=== PATIENT | female | born 1955 | race Two or more races ===

== ENCOUNTER 2020-11-05 16:35 | Emergency (ER) | payer OTHER, SELFPAY ==
--- NOTE | ~2020-11-05 | CT_ITS ---
EXAMINATION: CT brain wo con INDICATION: Dizziness COMPARISON: None TECHNIQUE: Standard unenhanced head CT. The dose-length product (DLP) was 605.33 mGy-cm. The mA was a djusted according to patient size. Iterative reconstruction technique was employed. FINDINGS: There is no intracranial hemorrhage, acute infarction, or abnormal mass lesion. The ventric les are normal. There is no abnormal mass effect or midline shift. The carnes-white matter differentiat ion is normal. The basal cisterns are patent. The orbits are normal. The paranasal sinuses, mastoids and calvarium are normal. IMPRESSION: 1. No acute intracranial abnormality. Reviewed, dictated and finalized at location A.
[2020-11-05 17:00] VITALS: BP 162/81; PULSE 85; RESP 17; TEMP 36.8; O2SAT 98
--- NOTE | 2020-11-05 17:03 | ECG_ITS ---
Measurements Intervals [place] Rate: 75 P: 38 GA: 193 QRS: 32 QRSD: 93 T: 35 QT: 375 QTc: 421 Interpretive Statements SINUS RHYTHM BORDERLINE R WAVE PROGRESSION, ANTERIOR LEADS CONSIDER INFERIOR INFARCT, AGE INDETERMINATE ABNORMAL ECG Electronically Signed On 11-06-2020 7:15:56 CDT by Paulo Carter D.O.
[2020-11-05 17:32] LABS: Basophils Absolute Auto 0.04 K/mm3 (0.00-0.10); Basophils Percent Auto 0.5 % (0.0-1.0); Eosinophils Absolute Auto 0.13 K/mm3 (0.02-0.50); Eosinophils Percent Auto 1.8 % (1.0-6.0); Hematocrit 39.2 % (35.0-49.0); Hemoglobin 12.8 g/dL (12.0-15.0); Immature Granulocyte Absolute 0.04 K/mm3 (0.00-0.00); Immature Granulocyte Percent A 0.5 % (0.0-0.0); Lymphocytes Absolute Auto 1.59 K/mm3 (1.10-4.50); Lymphocytes Percent Auto 21.7 % (18.0-42.0); Mean Corpuscular HGB Conc 32.7 g/dL (32.0-36.0); Mean Corpuscular Hemoglobin 31.1 pg (27.0-31.0); Mean Corpuscular Volume 95.1 fL (78.0-102.0); Monocytes Absolute Auto 0.44 K/mm3 (0.10-0.90); Neutrophils Absolute Auto 5.1 K/mm3 (1.7-7.2); Neutrophils Percent Auto 69.5 % (50.0-70.0); Platelet Count Result 203 K/mm3 (150-420); Red Blood Count 4.12 M/mm3 (4.20-5.40); Red Cell Distribution Width 13.4 % (11.6-14.4); White Blood Count 7.3 K/mm3 (4.8-10.8)
[2020-11-05 17:33] LABS: Add Urine Microscopic? YES; Appearance Urine Clear (Clear); Bilirubin Urine Negative (Negative); Blood Urine 2+ (Negative); Color Urine Yellow (Yellow); Glucose Urine UA Negative (Negative); Ketones Urine Trace (Negative); Leukocyte Esterase Ur Negative LEU/UL (Negative); Nitrate Urine Negative (Negative); Protein Urine Negative (Negative); Urobilinogen Urine 0.2 mg/dL (0.2-1.0)
[2020-11-05 17:42] LABS: Bacteria Urine Trace /hpf; Squamous Epithelial Cell Urine Rare /hpf (Few); WBC Urine None seen /hpf (0-3)
[2020-11-05 17:48] LABS: Partial Thromboplastin Time 25.9 SEC (23.90-30.70)
[2020-11-05 17:52] LABS: BNP 62.5 pg/mL (0-100)
[2020-11-05 17:57] LABS: Alanine Aminotransferase 32 U/L (14-59); Albumin Level 3.4 g/dL (3.4-5.0); Alkaline Phosphatase 45 U/L (46-116); Anion Gap 8 mmol/L (8-16); Aspartate Amino Transferase 15 U/L (15-37); Bilirubin,Total 0.7 mg/dL (0.00-1.00); Blood Urea Nitrogen 20 mg/dL (7-18); Calcium 9.3 mg/dL (8.5-10.1); Carbon Dioxide 28 mmol/L (21-32); Chloride 103 mmol/L (98-108); Estimated Glomerular Filt Rate 53; Glucose 106 mg/dL (70-99); Magnesium 1.5 mg/dL (1.8-2.4); Osmolality Calculated 290 mOsm/kg (285-295); Sodium 139 mmol/L (136-145); Total Protein 6.9 g/dL (6.4-8.2); Troponin I 13.5 ng/L (0.00-60.4)
[2020-11-05 17:59] LABS: Lactic Acid Reflex 2.2 mmol/L (0.4-2.0)
[2020-11-05] MEDS: MECLIZINE HCL 25 MG TABLET PO (18:08)
--- NOTE | 2020-11-05 18:09 | ED.DIZZY ---
HPI - Dizziness General Chief Complaint: Dizziness Stated Complaint: AMB Source: patient Mode of arrival: EMS Limitations: no limitations History of Present Illness HPI Narrative: this is a 65-year-old female with history of diabetes well controlled that presented to the emergency department via EMS after she called EMS while she was experiencing dizziness and vertigo with nausea vomiting. The patient denied having shortness of breath no chest pain no headache no blurry vision no fever or chills. The patient had previous episode of benign positional vertigo, in route EMS found that her heart rate was between 48 and 58 and gave her old dose of atropine, current heart rate is 85 she is asymptomatic, with no chest pain no shortness of breath. MD elicited complaint: dizziness Pertinent past history: BPPV Onset (ago): hour(s) Timing: gradual onset Severity: moderate Description: room spinning Exacerbating factors: movement/ambulation Associated symptoms: nausea and vomiting Related Data Home Medications Medication Instructions Recorded Confirmed levothyroxine [Synthroid] 50 mcg PO DAILY 11/05/20 11/05/20 losartan 100 mg PO DAILY 11/05/20 11/05/20 meloxicam 15 mg PO DAILY 11/05/20 11/05/20 metformin 1,000 mg PO BID 11/05/20 11/05/20 Allergies Allergy/AdvReac Type Severity Reaction Status Date / Time No Known Allergies Allergy Unverified 11/19/15 13:21 Review of Systems Review of Systems: All systems reviewed & are unremarkable except as noted in HPI and below PMFSH Past Medical History Medical History Benign positional vertigo Diabetes mellitus Exam Const: General: no acute distress and alert Orientation/consciousness: patient oriented x3 HENMT: Head: normal to inspection Eyes: Conjunctivae: conjunctivae normal Pupils: Equal, round and reactive pupils present Neck: Neck: normal visual inspection, no lymphadenopathy and no meningeal signs Resp: Effort & Inspection: normal respiratory effort Cardio: Rate: regular rate Rhythm: regular rhythm GI: Auscultation: normal bowel sounds : General: Yes no CVA tenderness Skin: General skin exam: normal color Rashes: no rashes Neuro: General: patient oriented x3, moves all extremities, no meningeal signs, no focal motor deficits and CN's II-XI intact bilaterally Cranial nerves: Yes Nystagmus not present Speech: normal speech Extrem: General: normal to inspection and no pedal edema Psych: Appearance: grossly normal Mental Status: mental status grossly normal Course Course Emergency Course: patient has improved, receive meclizine and magnesium p.o., a CT scan and labs an EKG really were reviewed with patient patient did receive atropine via EMS about her heart rate was in the 50s upon arrival with some a history of BPH and dizziness which has improved. Vital Signs Vital signs: Vital Signs Temperature 36.8 C 11/05/20 17:00 Pulse Rate 85 11/05/20 17:00 Respiratory Rate 17 11/05/20 17:00 Blood Pressure 162/81 H 11/05/20 17:00 Pulse Oximetry 98 11/05/20 17:00 Temperature 36.8 C 11/05/20 17:00 Pulse Rate 85 11/05/20 17:00 Respiratory Rate 17 11/05/20 17:00 Blood Pressure 162/81 H 11/05/20 17:00 Pulse Oximetry 98 11/05/20 17:00 MDM - Dizziness Lab Data Result diagrams: 11/05/20 17:22 11/05/20 17:21 Labs: Lab Results 11/05/20 11/05/20 11/05/20 Range/Units 17:21 17:21 17:21 WBC (4.8-10.8) K/mm3 RBC (4.20-5.40) M/mm3 Hgb (12.0-15.0) g/dL Hct (35.0-49.0) % MCV (78.0-102.0) fL MCH (27.0-31.0) pg MCHC (32.0-36.0) g/dL RDW (11.6-14.4) % Plt Count (150-420) K/mm3 MPV (9.2-11.8) fl Immature Gran % (Auto) (0.0-0.0) % Neut % (Auto) (50.0-70.0) % Lymph % (Auto) (18.0-42.0) % [place] % (Auto) (2.0-11.0) % Eos % (Auto) (1.0-6.0) % Baso % (Auto) (0.0-1.0
[2020-11-05] MEDS: MAGNESIUM OXIDE 400 MG TABLET PO (18:13)
[2020-11-05 18:22] LABS: Thyroid Stimulating Hormone 0.79 uIU/mL (0.36-3.74)
[2020-11-05 18:50] VITALS: BP 109/61; PULSE 60
[2020-11-05 20:25] LABS: Reflex Lactic Acid Yes or No Add Lactic
== END 2020-11-05 18:50 | disposition home or self-care (01) ==
PROVIDERS: Emergency Provider Emergency Medicine; PCP Internal Medicine
DX: H81.13 Benign paroxysmal vertigo, bilateral (principal); R11.2 Nausea with vomiting, unspecified; E11.9 Type 2 diabetes mellitus without complications; Z79.899 Other long term (current) drug therapy
CPT/HCPCS: 36415; 70450; 80053; 81001; 83605; 83735; 83880; 84443; 84484; 85025; 85610; 85730; 93005; 99283; 99284; A9270

== ENCOUNTER 2020-11-23 14:41 | Outpatient (RCR) | payer OTHER, SELFPAY ==
--- NOTE | 2020-11-23 16:15 | PTOPEVAL ---
INITIAL PHYSICAL THERAPY EVALUATION/POSSIBLE DISCHARGE SUMMARY Thank you for referring Delmis Gardner to [facility].? Delmis was seen this date for an evaluation in regards to her dizziness. Positive BPPV testing resulted with corrective maneuver performed. HEP was given for corrective maneuver. I will follow up with Delmis later this week to see how she is doing. If no further PT is needed - will discharge as per this note. If further treatment is needed, will formulate Plan of Care and forward that to you. I agree with and certify that the following plan of care is medically necessary. Referring Physician Date Admitting Provider: Attending Provider: Mak Spear, Referring Provider: *PT Outpatient Evaluation Start: 11/23/20 15:19 Freq: Status: Active Protocol: Document 11/23/20 15:15 AREN (Rec: 11/23/20 16:14 AREN [id number]) Therapy Assessment Status Assessment Status Assessment Status Evaluation Outpatient Past Medical History Neurological History Hx Other Neurological Disorders Yes: VERTIGO Cardiovascular History Hx Hypertension Yes Gastrointestinal History Hx Gastroesophageal Reflux Disease Yes Musculoskeletal History Hx Arthritis Yes: knees Endocrine History Hx Diabetes Yes Hx Hypothyroidism Yes Reproductive History Hx Post Menopausal Yes Evaluation Information Problem Diagnosis Vertigo, nausea Onset 11/05/20 Subjective Information Had to go to ED - unable to Query Text:As Reported By Patient/ move more than 50 ft before Family getting nauseated. Went to ED via ambulance - medication for low heart rate, higher BP Did receive something for low magnesium - was given medication for anti nausea and anti dizziness. - stopped taking anti nausea medication on her own, ran out of Meclizine. Initial episode woke her up from sleep. Now - increased dizziness with getting out of bed and with quick head turns. 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 Home famatidine , low dose iron Meds Must Be Re-entered With Each Visit. Anti nausea- had stopped Meclizine - ran out Home Setti
--- NOTE | 2020-11-27 13:52 | PCPTNOTE ---
Follow up phone call made. So far no dizziness. Reminded her to keep exercises in case she may need them in the future with dizziness. She is to call if she has questions. Will d/c from PT as per evaluation note/assessment.
== END 2020-12-17 10:37 | disposition home or self-care (01) ==
LOC: ANHHIPT 14:41
PROVIDERS: PCP Internal Medicine; Visit Provider Internal Medicine
DX: R42 Dizziness and giddiness (principal); R11.0 Nausea
CPT/HCPCS: 97162

== ENCOUNTER 2021-08-12 16:19 | Outpatient (CLI) | payer OTHER, SELFPAY ==
[2021-08-12 16:34] LABS: Basophils Absolute Auto 0.1 K/mm3 (0.0-0.1); Eosinophils Absolute Auto 0.3 K/mm3 (0-0.3); Eosinophils Percent Auto 2.4 % (0-4.4); Hematocrit 38.2 % (37.0-47.0); Hemoglobin 12.3 g/dL (12.0-15.0); Immature Granulocyte Absolute 0.22 K/mm3 (0.00-0.031); Immature Granulocyte Percent A 2.1 % (0-0.5); Lymphocytes Absolute Auto 2.01 K/mm3 (0.9-3.2); Lymphocytes Percent Auto 19.1 % (18.3-44.2); Mean Corpuscular HGB Conc 32.2 g/dl (32-36); Mean Corpuscular Hemoglobin 31.2 pg (26-34); Mean Platelet Volume 9.5 fl (7.4-10.4); Monocytes Absolute Auto 1.1 K/mm3 (0.1-0.6); Monocytes Percent Auto 10.9 % (2.6-8.5); Neutrophils Absolute Auto 6.8 K/mm3 (1.3-6.7); Neutrophils Percent Auto 64.5 % (45.5-73.1); Platelet Count Result 269 k/mm3 (150-375); Red Blood Count 3.94 M/mm3 (4.2-5.4); Red Cell Distribution Width 13.4 % (11.5-14.5); White Blood Count 10.5 K/mm3 (4.5-10.0)
[2021-08-12 16:43] LABS: Alanine Aminotransferase 28 U/L (4-35); Alkaline Phosphatase 121 U/L (38-126); Aspartate Amino Transferase 24 U/L (14-36); Bilirubin,Total 0.7 mg/dL (0.2-1.3)
== END 2021-08-12 16:20 | disposition home or self-care (01) ==
LOC: ANHLAB 16:23
PROVIDERS: PCP Internal Medicine; Visit Provider Surgery
DX: K80.00 Calculus of gallbladder with acute cholecystitis without obstruction (principal)
CPT/HCPCS: 36415; 80076; 85025

== ENCOUNTER 2021-08-26 10:14 | Outpatient (CLI) | payer OTHER, SELFPAY ==
[2021-08-26 10:45] LABS: Amylase 87 U/L (30-110); Lipase 302 U/L (23-300)
[2021-08-26 10:47] LABS: Anion Gap 9 mmol/L (8-16); Blood Urea Nitrogen 25 mg/dL (7-17); Calcium 9.8 mg/dL (8.4-10.2); Carbon Dioxide 29 mmol/L (22-30); Chloride 103 mmol/L (98-107); Estimated Glomerular Filt Rate 45; Glucose 95 mg/dL (65-110); Potassium 4.6 mmol/L (3.4-5.0); Sodium 141 mmol/L (137-145)
== END 2021-08-26 10:15 | disposition home or self-care (01) ==
LOC: ANHSURGERY 10:18
PROVIDERS: Anesthesiology; PCP Internal Medicine; Visit Provider Surgery
DX: Z01.812 Encounter for preprocedural laboratory examination (principal); K80.00 Calculus of gallbladder with acute cholecystitis without obstruction; E11.9 Type 2 diabetes mellitus without complications
CPT/HCPCS: 36415; 80048; 82150; 83690; 86850; 86900; 86901

== ENCOUNTER 2021-08-30 00:50 | Day surgery (SDC) | payer OTHER, SELFPAY ==
[2021-08-25 11:28] VITALS: BMI 32.9
--- NOTE | 2021-08-25 11:41 | PC.NURSE ---
Report to the Outpatient Waiting Room, entrance under the green pavilion located off [facility], at time 11:30 on date 08/30/21. OR Time: 1:30. - You will be asked a series of questions to screen for COVID 19 for your protection. - A mask is required within the hospital. - No visitors are allowed at this time. Preoperative COVID Testing Requirements: No COVID Test needed if: (proof is required; if not received patient will have Rapid Test prior to entry) - Patient has received COVID Vaccine at least 14 days prior to procedure date or - Patient has positive COVID test result within last 90 days of surgery date. COVID Test needed if above criteria is not met Patients may have clear liquids (water, carbonated beverages, clear teas, apple juice) until 3 hours prior to surgery (10:30) with a maximum of 20 ounces. - No food from midnight until time of surgery Take the following medications with a SIP of water the morning of surgery: LEVOTHYROXINE Medications to discontinue per physician: VITAMINS/SUPPLEMENTS Date to take last dose: 08/26/21 Please no make-up, nail taiwanese, hairspray, perfume, deodorant, or body powder the day of surgery. No jewelry (including any body piercings) or valuables the day of surgery, leave them at home. Please take a shower or bath the night before, or the morning of, surgery with an antibacterial soap. Wear comfortable, loose fitting clothing. HIBICLENS SHOWER - Jewelry must be removed prior to entering the operating room. Rings and piercings that are not removed may be cut off. - The hospital will not accept responsibility for valuables. - Please leave all valuables, including medications, at home the day of surgery. If you are going home after surgery, a licensed telephone directory distributor driver must drive you home. - NO public transportation without another adult. - We recommend that an adult stay with you for 24 hours following discharge. - We also recommend that you do not drive, make important decision, drink alcoholic beverages, or take any drugs that were not prescribed by your health care provider for at least 24 hours after your discharge time. Follow any additional instructions given to you from your surgeon. Telephone instructions given to DANNIELLE LEIGH and asked if any additional questions and then verbalized understanding. Patient advised to call surgeon office or pre surgery nurse liaison [phone] if any additional questions.
[2021-08-30] VITALS (8 sets, daily range): BP systolic 103–128; BP diastolic 46–69; PULSE 48–67; RESP 10–20; TEMP 36.2–36.6; O2SAT 95–100
--- NOTE | ~2021-08-30 | XR_ITS ---
EXAMINATION: XR cholangiogram surg 1st inj DATE: 08/30/2021 12:33 INDICATION: Intraoperative cholangiogram TECHNIQUE: 125 fluoroscopic images of the right upper quadrant were obtained during intraoperative ch olangiography performed by the surgeon. I was not present in the operating room. Fluoroscopy exposure time was 21.4 seconds. COMPARISON: None. FINDINGS: There is mild enlargement of the common bile duct. No definite common bile duct stones are identified. Contrast flows freely into the duodenum. IMPRESSION: 1. Mild biliary dilatation without definite stone identified. Reviewed, dictated and finalized at location B. CH HANGER
--- NOTE | 2021-08-30 10:53 | P.PNAN_ITS ---
Anes - Initial Pre Proc Eval Procedure: Operation Date: 08/30/21 13:00 Proposed Procedures p Laparoscopic Cholecystectomy Possible Intraoperative Cholangiogram, Possible Open - Edwardo Kitchen DO Date/Time: 08/30/21 10:53 Surgeon: Edwardo Kitchen DO Pre Op Diagnosis: acute calculous cholecystitis Patient Data Age: 66 Gender: F Height: 1.57 m Weight: 81.65 kg Allergies Allergy/AdvReac Type Severity Reaction Status Date / Time No Known Allergies Allergy Verified 08/25/21 11:26 Home Medications Medication Instructions Recorded Confirmed Type levothyroxine [Synthroid] 50 mcg PO DAILY 11/05/20 08/25/21 History losartan 100 mg PO DAILY 11/05/20 08/25/21 History meclizine 25 mg PO TID PRN #30 tablet 11/05/20 08/25/21 Rx meloxicam 15 mg PO DAILY 11/05/20 08/25/21 History metformin 1,000 mg PO BID 11/05/20 08/25/21 History famotidine 20 mg tablet 20 mg PO DAILY 08/12/21 08/25/21 History ferrous sulfate 27 mg iron tablet 27 mg PO DAILY 08/12/21 08/25/21 History omega 3,6,9 combination no.7 92 mg 92 mg PO DAILY 08/12/21 08/25/21 History (43 mg-22 [id number]) chew tablet multivitamin 1 tablet PO DAILY 08/25/21 08/25/21 History Patient hx anesthesia problems: none Family hx anesthesia problems: none Results Review: All pre-operative results and documents have been reviewed as part of the pre-operative evaluation. REPLACED BY [facility] Past Medical History Medical History Benign positional vertigo Diabetes mellitus HTN (hypertension) Surgical History Surgical History H/O rectal polypectomy Family History Family History Father Diabetes mellitus Cerebrovascular accident Hypertension Gout Other Cancer Heart disease Social History Social History Smoking status: Never smoker Alcohol intake: current Alcohol use details: RARE Substance use: never Substance use type: does not use Living arrangements: alone Spiritual care concerns: No Anes - Eval Final PreProcedure Day of Procedure 08/30/21 10:53 Patient weight: obese Heart: regular rate and rhythm Lungs: clear to auscultation Airway: Mallampati scale class III Neurological: alert and oriented Last oral intake: >/= 8 hours ASA classification: III Emergent: no Anesthetic plan: proceed Anesthesia type and monitoring: general ETT and standard monitoring Results Review: All pre-operative results and documents have been reviewed as part of the pre-operative evaluation. Informed Consent: The patient's anesthetic plan and its attendant risks and benefits were discussed with the patient/family/POA. Questions were solicited and answers provided to the satisfaction of the patient/family/POA.
--- NOTE | 2021-08-30 11:05 | WPDHPUPDATE1 ---
History and Physical Update Update Date/Time: 08/30/21 11:05 History and Physical has been reviewed, including an updated exam of the patient. There are NO changes in the patient's condition. Risks, benefits, and alternatives have been discussed and questions answered. Patient agrees to proceed with procedure.
[2021-08-30] MEDS: ACETAMINOPHEN 500 MG TABLET 1000 MG PO (11:13)
[2021-08-30] MEDS: KETOROLAC 15 MG/ML VIAL (*BKC) IV PUSH (11:13)
[2021-08-30] MEDS: LACTATED RINGERS 1,000 ML 30 ML IV CONT ×2 (11:13→12:56)
[2021-08-30] MEDS: SCOPOLAMINE 1.5 MG PATCH TRANSDERM (11:13)
[2021-08-30 11:15] LABS: Glucose Point of Care 97 mg/dl (65-105)
[2021-08-30] MEDS: ceFAZolin 2 GM/D5W 50 ML 2 GM/50 ML BAG IVPB (11:28)
[2021-08-30] MEDS: BUPIVACAINE/EPINEPHRINE 0.5% 30 ML VIAL INFILTRATE (11:43)
--- NOTE | 2021-08-30 12:55 | W.PM.PROC2 ---
Procedure Note - Detailed Date of Procedure 08/30/21 Pre-op Diagnosis acute calculous cholecystitis Post-op Diagnosis same Procedure Performed Laparoscopic Cholecystectomy with intraoperative cholangiogram Surgeon Edwardo Kitchen, DO Anesthesia general and local (0.5% bupivacaine) Indications This is a 66-year-old woman who presented with right upper quadrant abdominal pain. She had gone to [facility] Emergency Department on 08/11/2021 with acute onset of pain. Workup showed evidence of acute calculous cholecystitis with 2 large gallstones within the gallbladder. She also had a possible calcified region in the hepatic duct. Her liver enzymes were all normal. The common bile duct size was normal. She was then seen in the office for evaluation and discussion was made with the patient about treatment options. Decision was made to proceed with laparoscopic cholecystectomy with intraoperative cholangiogram, possible open. Findings Laparoscopic cholecystectomy was performed with intraoperative cholangiogram. The gallbladder still had some chronic wall thickening and induration. The neck of the gallbladder appeared very scarred and inflamed. With careful dissection I eventually was able to identify the neck of the gallbladder and cystic duct. I then identified the cystic artery and I had identified our critical view of safety. Intraoperative cholangiogram was obtained with Omnipaque contrast. The images were sent to Radiology for interpretation. There did appear to be some mild dilation of the common duct but no filling defects or obstruction. The gallbladder was then removed and sent to the lab for pathology. Description of Procedure Procedure as well as risks, benefits, and alternatives were discussed with patient. Written consent was obtained and placed in chart prior to procedure. The patient was brought back to surgical suite. Patient was placed in supine position on operating table. Time-out was done to confirm patient and procedure. Patient was then intubated by the anesthesia department. Abdomen was prepped and draped in sterile fashion using chlorhexidine prep. 0.5% bupivacaine with epinephrine was infiltrated at each site of incision. A 5 millimeter incision was made near the umbilicus, and a 5 millimeter Optiview trocar was advanced through the abdominal layers under direct visualization. Once inside the abdominal cavity, carbon dioxide was insufflated to create a pneumoperitoneum. The camera was inserted and the abdomen was inspected. No immediate abnormalities were identified. The patient was placed in reverse Trendelenburg position and rotated slightly to the left. An 11 millimeter incision was made in the subxiphoid region, and an 11 millimeter trocar was inserted under direct visualization. Two 5 millimeter incisions were made in the right upper quadrant, and two 5 millimeter trocars were inserted under direct visualization. The gallbladder was identified and grasped at the fundus and retracted superiorly. It was then grasped at the infundibulum retracted laterally. Careful dissection around the neck of the gallbladder was performed using blunt dissection with a [place] grasper and hook electrocautery. The cystic duct was identified, and a window was created behind it. The cystic artery was also identified and a window was created behind it. The critical view of safety was identified, visualizing the cystic duct running directly into the neck of the gallbladder, and the cystic artery running directly into the wall of the gallbladder. A 5 millimeter clip wheel setter was then used to place 2 clips proximally and 1 clip distally on the cystic artery. It was then transected using endoscopic scissors. I then placed the Navarrete clamp across the distal neck of the gallbladder and the Navarrete cholangiocatheter was advanced into the distal neck of the gallbladder. Bile was able to be aspirated and the catheter flushed with saline with ease.
[2021-08-30 13:04] LABS: Glucose Point of Care 157 mg/dl (65-105)
--- NOTE | 2021-08-30 13:36 | SUR.PHASEI ---
Simple mask removed at 1335.
== END 2021-08-30 15:08 | disposition home or self-care (01) ==
PROVIDERS: PCP Internal Medicine; Visit Provider Surgery
PROC: 0FT44ZZ Resection of Gallbladder, Percutaneous Endoscopic Approach (ICD-10-PCS; CPT 47562; principal; 2021-08-30 13:00)
DX: K80.12 Calculus of gallbladder with acute and chronic cholecystitis without obstruction (principal); I10 Essential (primary) hypertension; E11.9 Type 2 diabetes mellitus without complications; Z79.84 Long term (current) use of oral hypoglycemic drugs; E66.9 Obesity, unspecified; Z68.32 Body mass index [BMI] 32.0-32.9, adult
CPT/HCPCS: 47563; 36415; 74300; 80048; 82150; 82948; 83690; 86850; 86900; 86901; 88304; A9270; J0690; J1100; J1885; J2405; J2704; J2710; J3010; J7030; J7120; Q9966

== ENCOUNTER 2022-08-16 00:35 | Day surgery (SDC) | payer MEDICARE, SELFPAY ==
[2022-08-02 15:00] VITALS: BMI 33.0
[2022-08-16 08:21] VITALS: BP 128/82; PULSE 58; RESP 18; TEMP 36.2; O2SAT 98
[2022-08-16] MEDS: LACTATED RINGERS 1,000 ML 150 ML IV CONT (08:32)
--- NOTE | 2022-08-16 08:32 | PM.HPGS ---
History of Present Illness History of Present Illness Consent: Risks, benefits, and alternatives have been discussed and questions answered. Patient agrees to proceed with procedure. Chief complaint: HX OF COLON polyps Narrative: Delmis Gardner is a 67 year old female Presents for screening colonoscopy. Patient's current weight appetite and bowel movements are normal. Patient denies abdominal pain. She has had no bleeding. She has had colon polyps on several previous colonoscopies. Most recently 2016 had several tubular adenoma polyps removed. Patient presents today for screening colonoscopy. She reports that her current weight appetite bowel movements are normal. Review of Systems Review of Systems: Review of systems noncontributory. [facility] Past Medical History Medical History (Updated 08/16/22 @ 08:33 by Bladimir Roman MD) Abnormal mammogram Benign positional vertigo Diabetes mellitus Elevated blood uric acid level Gout HTN (hypertension) Screening for colon cancer Surgical History Surgical History H/O rectal polypectomy Hx laparoscopic cholecystectomy 08/30/21 Family History Family History Father Diabetes mellitus Cerebrovascular accident Hypertension Gout Other Cancer Heart disease Social History Social History Smoking status: Never smoker Alcohol intake: current Alcohol use details: rarely Substance use: never Substance use type: does not use Living arrangements: alone Spiritual care concerns: No Meds Home Medications and Allergies Home Medications Medication Instructions Recorded Confirmed Type meclizine 25 mg tablet 25 mg PO TID PRN dizziness #30 tabs 11/05/20 08/02/22 Rx famotidine 20 mg tablet 20 mg PO DAILY 08/12/21 08/02/22 History multivitamin 1 tablet PO DAILY 08/25/21 08/02/22 History allopurinol 100 mg tablet 100 mg PO BID #60 tabs 05/04/22 08/02/22 Rx levothyroxine 50 mcg tablet 50 mcg PO DAILY #90 tabs 06/06/22 08/02/22 Rx (Synthroid) losartan 100 mg tablet 100 mg PO DAILY #90 tabs 06/16/22 08/02/22 Rx Allergies Allergy/AdvReac Type Severity Reaction Status Date / Time fenofibrate AdvReac Intermediate Muscle Pain Verified 08/16/22 08:20 Vital Signs Vital Signs - 24 hr 08/16/22 08:21 Temperature 97.2 F L Pulse Rate 58 L Respiratory Rate 18 Blood Pressure 128/82 Pulse Oximetry 98 Oxygen Delivery Room Air Exam Narrative: Physical exam reveals patient to be alert. Vital signs stable. HEENT exam is unremarkable. Patient is anicteric. Lungs are clear to auscultation and percussion. Heart is without murmur or extra sounds. Abdomen bowel sounds present soft nontender with no organomegaly. Digital external rectal exam is normal. Assessment and Plan Assessment and plan (1) Screening for colon cancer: Code(s): Z12.11 - Encounter for screening for malignant neoplasm of colon Status: Acute (2) History of colon polyps: Code(s): Z86.010 - Personal history of colonic polyps Status: Acute Assessment and Plan: Patient has had adenomatous colon polyps removed in several previous occasions. Plan for screening colonoscopy now and consider this at 5 year intervals in the future.
[2022-08-16 08:36] LABS: Glucose Point of Care 110 mg/dl (65-105)
[2022-08-16 10:01] VITALS: BP 98/50; PULSE 59; RESP 20; O2SAT 98
[2022-08-16 10:11] VITALS: BP 102/55; PULSE 48; RESP 17; O2SAT 98
[2022-08-16 10:21] VITALS: BP 140/61; PULSE 52; RESP 23; O2SAT 100
== END 2022-08-16 10:29 | disposition home or self-care (01) ==
PROVIDERS: PCP Family Medicine; Visit Provider Internal Medicine Gastroenterology
PROC: 0DJD8ZZ Inspection of Lower Intestinal Tract, Via Natural or Artificial Opening Endoscopic (ICD-10-PCS; CPT 45378; principal; 2022-08-16 09:30)
DX: Z12.11 Encounter for screening for malignant neoplasm of colon (principal); K64.8 Other hemorrhoids; K57.30 Diverticulosis of large intestine without perforation or abscess without bleeding; Z86.010 Personal history of colon polyps; I12.0 Hypertensive chronic kidney disease with stage 5 chronic kidney disease or end stage renal disease; E11.9 Type 2 diabetes mellitus without complications; M10.9 Gout, unspecified
CPT/HCPCS: G0105; 82948; J2704; J7120